=== PATIENT | female | born 1990 | race Caucasian/White ===

== ENCOUNTER 2020-03-26 10:50 | Outpatient (REF) | payer OTHER, SELFPAY | END 2020-03-26 10:51 | disposition home or self-care (01) | LOC: HO.LAB 10:50 | PROVIDERS: Visit Provider Internal Medicine | DX: Z20.828 Contact with and (suspected) exposure to other viral communicable diseases (principal) | CPT/HCPCS: C9803; U0003 ==

== ENCOUNTER 2020-07-23 11:39 | Outpatient (REF) | payer OTHER, SELFPAY ==
[2020-07-23 12:51] LABS: COVID-19 Test Negative (Negative)
== END 2020-07-23 11:40 | disposition home or self-care (01) ==
LOC: HO.LAB 11:39
PROVIDERS: Visit Provider Internal Medicine
DX: Z20.822 Contact with and (suspected) exposure to COVID-19 (principal)
CPT/HCPCS: 36415; 87635; C9803

== ENCOUNTER 2020-11-17 11:41 | Outpatient (REF) | payer OTHER, SELFPAY | END 2020-11-17 11:42 | disposition home or self-care (01) | LOC: HO.LAB 11:41 | PROVIDERS: Visit Provider Internal Medicine | DX: Z20.822 Contact with and (suspected) exposure to COVID-19 (principal) | CPT/HCPCS: C9803; U0003; U0005 ==

== ENCOUNTER 2020-11-25 03:05 | Emergency (ER) | payer OTHER, SELFPAY ==
--- NOTE | ~2020-11-25 | XR_ITS ---
EXAMINATION: XR CHEST CLINICAL INFORMATION: Shortness of breath, chest wall pain COMPARISON: 07/02/2019 TECHNIQUE: Frontal view of the chest was obtained. FINDINGS: The lungs are clear with no focal consolidation. No evidence of pneumothorax, pulmonary edema, or pleural effusions. The cardiomediastinal silhouette is unremarkable. No acute osseous findings. XR/XR chest 1V IMPRESSION: No acute cardiopulmonary findings.
[2020-11-25 03:17] VITALS: BP 132/85; PULSE 111; RESP 18; TEMP 37.7; O2SAT 97; BMI 39.4
--- NOTE | 2020-11-25 05:04 | ED.GENADULT ---
HPI - General Adult General Chief complaint: General Medical Stated complaint: Tested + for COVID on 11/16 Time Seen by Provider: 11/25/20 04:49 Source: patient Mode of arrival: ambulatory Limitations: no limitations History of Present Illness HPI narrative: Patient comes to emergency room complaining of chest wall burning sensation with inspiration, fevers. Patient tested positive for COVID-19 on November 16. Patient denies chest pain, no shortness of breath. Patient complaining of anxiety. 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 Patient also complaining of nausea and diarrhea Related Data Previous Rx's Medication Instructions Recorded ibuprofen 600 mg tablet 600 mg PO TID PRN #20 tab 11/25/20 loperamide 2 mg capsule 2 mg PO Q4H PRN #10 cap 11/25/20 ondansetron HCl 4 mg tablet 4 mg PO Q6H PRN #14 tab 11/25/20 (Zofran) Allergies Allergy/AdvReac Type Severity Reaction Status Date / Time No Known Allergies Allergy Unverified 12/20/19 18:26 [No Known Allergies*] Review of Systems Review of Systems: Constitutional : No Weight loss, complaining of fever, chills, fatigue and generalized malaise ENT/Mouth : No Hearing loss, No Ear Pain, No Nasal Congestion, No Sinus Pain, No Hoarseness, No sore throat, No Rhinorrhea, No Swallowing Difficulty Eyes: No Eye Pain, No Swelling, No Redness, No Foreign Body, No Discharge, No Vision Changes Cardiovascular : No Chest Pain, No SOB, No Dyspnea on Exertion, No Orthopnea, No Edema, chronic Palpitations Respiratory : Cough, bilateral posterior chest wall burning sensation with deep inspiration, No Sputum, No Wheezing, No Smoke Exposure, No Dyspnea Gastrointestinal : Complaining of nausea and diarrhea,, No Constipation, No abdominal Pain, No Hematochezia, No Melena Genitourinary : no irregular bleeding, No Dysuria, No Urinary Frequency, No Hematuria, No Urinary Incontinence, No Urgency, No Flank Pain, No Urinary Flow Changes, No Hesitancy Musculoskeletal : No joint pain, No Myalgias, No Joint Swelling Skin : No Skin Lesions, No rash Neuro : No Weakness, No Numbness, No Paresthesias, No Loss of Consciousness, No Dizziness, No Headache Psych : No Anxiety/Panic, No Depression, No SI/HI/AH/VH, No Social Issues, Heme/Lymph: No Bruising, No Bleeding,No Lymphadenopathy Endocrine : No Polyuria, No Polydipsia, No Temperature Intolerance [facility] Social History Social History Advance Directives: No Advance Directives Information Provided: Yes Patient : No Physical Exam Vital Signs: Vital Signs: Last Vital Signs Temp 99.8 F 11/25/20 03:17 Pulse 111 H 11/25/20 03:17 Resp 18 11/25/20 03:17 BP 132/85 11/25/20 03:17 Pulse Ox 97 11/25/20 03:17 Oxygen Flow Rate 97 11/25/20 03:17 Body Mass Index 39.4 Const: Other: Appearance: Alert. Oriented X3. No acute distress. Eyes: Pupils equal, round and reactive to light. ENT: Pharynx normal. Neck: Normal inspection. Neck supple. No lymph nodes noted. No crepitus CVS: Normal heart rate and rhythm. Pulses normal. Normal S1 and S2 Respiratory: No respiratory distress. Breath sounds normal. No Wheezing. No rales Abdomen: Soft and nontender. No rigidity. No distention. Skin: Skin warm and dry. Normal skin color. Normal skin turgor. Extremities: No lower extremity edema. No Lacerations. No Rash Neuro: Oriented X 3. No motor deficit. No sensory deficit. Moving all extermities. No slurred speech. Course Course Course Narrative: Discussed the CT findings with the patient, no acute pathology. I discussed with the patient that she will feel sick for the next couple of weeks. Instructed to stay well hydrated. Discharge Plan Discharge Clinical Impression: COVID-19, Nausea vomiting and diarrhea Patient Disposition: Home, Self-Care Instructions: COVID-19 (Coronavirus Disease 2019) (ED) Additional Instructions: Drink fluids with electrolytes such as Pedialyte, Gatorade, Powerade. Please follow-up with your primary care physician tomorrow. If you have any worsening or new symptoms, please return to the emergency room or call 911 Prescriptions: New ibuprofen 600 mg tablet 600 mg PO TID PRN (Reason: fever or pain) Qty: 20 RF: 0 ondansetron HCl [Zofran] 4 mg tablet 4 mg PO Q6H PRN (Reason: nausea and vomiting) Qty: 14 RF: 0 loperamide 2 mg capsule 2 mg PO Q4H PRN (Reason: loose stool) Qty: 10 RF: 0
== END 2020-11-25 05:19 | disposition home or self-care (01) ==
PROVIDERS: Emergency Provider Emergency Medicine
DX: U07.1 COVID-19 (principal); R11.2 Nausea with vomiting, unspecified; R19.7 Diarrhea, unspecified
CPT/HCPCS: 71045; 99283

== ENCOUNTER 2020-11-27 13:32 | Outpatient (REF) | payer OTHER, SELFPAY ==
[2020-11-27 15:52] LABS: COVID-19 Test Negative (Negative)
== END 2020-11-27 13:33 | disposition home or self-care (01) ==
LOC: HO.LAB 13:32
PROVIDERS: PCP Physician Assistant Medical; Visit Provider Internal Medicine
DX: Z20.822 Contact with and (suspected) exposure to COVID-19 (principal)
CPT/HCPCS: 36415; 87635; C9803

== ENCOUNTER 2021-03-13 08:39 | Outpatient (REF) | payer OTHER, SELFPAY | END 2021-03-13 08:40 | disposition home or self-care (01) | LOC: HO.LAB 08:39 | PROVIDERS: Visit Provider Internal Medicine | DX: Z20.822 Contact with and (suspected) exposure to COVID-19 (principal) | CPT/HCPCS: C9803; U0003; U0005 ==

== ENCOUNTER 2021-04-15 09:57 | Outpatient (REF) | payer OTHER, SELFPAY | END 2021-04-15 09:58 | disposition home or self-care (01) | LOC: HO.LAB 09:57 | PROVIDERS: Visit Provider Internal Medicine | DX: Z13.89 Encounter for screening for other disorder (principal) | CPT/HCPCS: C9803 ==